=== PATIENT | female | born 1950 | race Caucasian/White ===

== ENCOUNTER 2018-12-08 12:50 | Day surgery (SDC) | payer MEDICARE, OTHER ==
[2018-12-08] MEDS ORDERED: BUPIVACAINE HCL 0.25% MPF 30 ML SOL INFIL ONE (13:34)
[2018-12-08] MEDS ORDERED: DEXAMETHASONE SOD PHOS PF 10 MG/ML SOL IJ ONE (13:34)
[2018-12-08 13:45] VITALS: O2SAT 99
[2018-12-08 14:06] VITALS: BP 109/87; PULSE 93; RESP 12; TEMP 97.7
== END 2018-12-08 14:17 | disposition home or self-care (01) | DRG 552 ==
LOC: SURG 12:50
PROVIDERS: ATTEND Nurse Anesthetist, Certified Registered
DX: M48.062 Spinal stenosis, lumbar region with neurogenic claudication (principal); E11.9 Type 2 diabetes mellitus without complications
CPT/HCPCS: J1100

== ENCOUNTER 2019-02-10 12:15 | Day surgery (SDC) | payer MEDICARE, OTHER ==
[2019-02-10] MEDS ORDERED: BUPIVACAINE HCL 0.25% MPF 30 ML SOL INFIL ONE (12:55)
[2019-02-10] MEDS ORDERED: DEXAMETHASONE SOD PHOS PF 10 MG/ML SOL IJ ONE (12:55)
[2019-02-10 13:17] VITALS: BP 142/89; PULSE 87; RESP 18; TEMP 98.4; O2SAT 94
== END 2019-02-10 13:44 | disposition home or self-care (01) | DRG 552 ==
LOC: SURG 12:15
PROVIDERS: ATTEND Nurse Anesthetist, Certified Registered
DX: M48.062 Spinal stenosis, lumbar region with neurogenic claudication (principal); E11.9 Type 2 diabetes mellitus without complications
CPT/HCPCS: J1100